=== PATIENT | female | born 1970 | race American Indian/Alaskan Native ===

== ENCOUNTER 2018-02-13 19:57 | Emergency (ER) | payer SELFPAY ==
[2018-02-13 20:06] VITALS: BP 140/81
[2018-02-13] MEDS ORDERED: BOOSTRIX IM ONE (23:52)
--- NOTE | 2018-02-13 23:52 | Emergency Department Report ---
Upper Extremity - HPI Chief Complaint: Extremity Injury, Upper Stated Complaint: RIGHT FINGER/HAND PAIN Time Seen by Provider: 02/13/18 23:51 Upper Extremity: Right Middle Finger (distal right middle finger) Occurred When: >5 Days (7 days ago) Symptoms: Yes Pain with Movement, Yes Swelling, No Deformity, No Limited Range of Movement, No Numbness, No Weakness, No Bruising/Ecchymosis, No Laceration or Abrasion Other History: 47-year-old female past medical history none presents with complaint of puncture wound to tip of right distal middle finger. Patient states she was shopping approximately one week ago in [place]. States she grabbed a bag of produce and the metal staple on bag briefly pierced the tip of her right distal middle finger. Patient states that over the course of the week she has had some mild swelling of right middle finger. Denies any difficulty moving finger. Is concerned she needs a tetanus vaccine update. Denies any erythema or pus drainage or significant swelling at site of puncture wound. Patient was very small and patient does not have foreign body sensation in tip of finger. Patient states she saw the piece of metal that it was intact. Denies any other injuries. ED Review of Systems ROS: Stated complaint: RIGHT FINGER/HAND PAIN Other details as noted in HPI Constitutional: denies: chills, fever Eyes: denies: eye pain, eye discharge, vision change ENT: denies: ear pain, throat pain Respiratory: denies: cough, shortness of breath, wheezing Cardiovascular: denies: chest pain, palpitations Endocrine: no symptoms reported Gastrointestinal: denies: abdominal pain, nausea, diarrhea Genitourinary: denies: urgency, dysuria, discharge Musculoskeletal: as per HPI (some small amount of swelling and discomfort right distal middle finger at PIP joint region). denies: back pain, joint swelling, arthralgia Skin: denies: rash, lesions Neurological: denies: headache, weakness, paresthesias Psychiatric: denies: anxiety, depression Hematological/Lymphatic: denies: easy bleeding, easy bruising ED Past Medical Hx - Past Medical History Previous Medical History?: No - Surgical History Past Surgical History?: No - Social History Smoking Status: Never Smoker Substance Use Type: None - Medications Home Medications: Home Medications Medication Instructions Recorded Confirmed Last Taken Type Acetaminophen/Codeine [Tylenol #3] 1 tab PO Q6H PRN #25 tab 06/09/15 Unknown Rx Cyclobenzaprine [Flexeril 10mg] 10 mg PO TID PRN #30 tablet 05/05/15 Unknown Rx Ibuprofen [Motrin] 600 mg PO Q8H PRN #50 tablet 05/05/15 Unknown Rx Clindamycin [Clindamycin CAP] 300 mg PO Q6H #28 capsule 02/14/18 Unknown Rx Ibuprofen [Motrin] 600 mg PO Q8H PRN #20 tablet 02/14/18 Unknown Rx Upper Extremity Exam - Exam General: Vital signs noted. No distress. Alert and acting appropriately. Head and Torso: No HEENT Abnormality, No Neck Tenderness, No Chest/Lungs Abnormality, No Abdominal Tenderness, No Back Tenderness Shoulder Exam: Yes Normal Range of Motion in Shoulder, No Shoulder Tenderness, No Clavicle Tenderness, No Shoulder Deformity, No AC Joint Tenderness Arm Exam: No Arm/Humerus Tenderness, No Arm Deformity Elbow: No Elbow Tenderness, No Normal Range of Motion in Elbow, No Elbow Deformity Forearm: No Forearm Tenderness, No Forearm Deformity, No Pain with Pronation, No Pain with Supination Wrist: Yes Normal ROM in Wrist (wrist flexion and extension intact), No Wrist Tenderness, No Wrist Deformity, No Snuffbox Tenderness, No Pain with Axial Thumb Compression Hand: Yes Digit Tenderness (some mild discomfort on palpation of area between MCP and PIP joint on the palmar aspect of hand no significant erythema or swelling on clinical exam), Yes Normal ROM in Digit(s), No Hand Tenderness, No Hand Deformity, No Digit(s) Deformity, No Tendon Dysfunction (range of motion PIPs DIPs MCPs and lumbricals fully intact all digits right hand) CMS Exam: Yes Normal Distal Pulses (distal capillary refill less than one second all fingers distal radial brachial and ulnar pulses strong to palpation) , Yes Normal Capillary Refill, Yes Normal Distal Sensation (and station intact all fingers), No Broken Skin Hand L/R Front: 1 - Slight discomfort here 2 - Patient states that this was the site of the puncture wound before. There is no clinical felon or paronychia on examination ED Course Vital Signs 02/13/18 20:04 Temperature 97.6 F Pulse Rate 74 Respiratory 20 Rate Blood Pressure 140/81 O2 Sat by Pulse 98 Oximetry ED Medical Decision Making - Medical Decision Making A/P: Possible early tenosynovitis right distal middle finger 1- no clearcut signs of erythema swelling or infection of right middle finger. Puncture wound is extremely small and has healed as per patient. Range of motion right middle finger fully intact distal capillary refill less than 1 second and distal sensation is intact. There is no erythema to touch or visible erythema/induration on palpation and inspection 2-empiric course of clindamycin 3-Motrin when necessary 4- I educated patient on signs and symptoms of infectious tenosynovitis and cellulitis and advised her to return to the ED for any inability to range her right hand or fingers significant swelling or erythema., purulent painful accumulation underneath the skin, fevers or chills. I showed her pictures of what infectious tenosynovitis looks like. They're not entirely consistent with what she has now clinically. 5- tetanus vaccine updated today Critical care attestation.: If time is entered above; I have spent that time in minutes in the direct care of this critically ill patient, excluding procedure time. ED Disposition Clinical Impression: Finger pain, right Puncture wound of finger of right hand Qualifiers: Encounter type: initial encounter Qualified Code(s): S61.239A - Puncture wound without foreign body of unspecified finger without damage to nail, initial encounter Disposition: - TO HOME OR SELFCARE Is pt being admited?: No Does the pt Need Aspirin: No Condition: Stable Instructions: Tenosynovitis (ED), RICE Therapy (ED), Diphtheria/Tetanus Vaccine (Injection) Prescriptions: Clindamycin [Clindamycin CAP] 300 mg PO Q6H #28 capsule Ibuprofen [Motrin] 600 mg PO Q8H PRN #20 tablet PRN Reason: Pain Referrals: [facility] [Provider Group] - 3-5 Days [facility] [Provider Group] - 3-5 Days Forms: Work/School Release Form(ED) Time of Disposition: 00:19
== END 2018-02-14 00:40 | disposition home or self-care (01) ==
LOC: ED 19:57
DX: S61.232A Puncture wound without foreign body of right middle finger without damage to nail, initial encounter (principal); Z88.1 Allergy status to other antibiotic agents; W22.8XXA Striking against or struck by other objects, initial encounter; Y93.89 Activity, other specified; Y92.89 Other specified places as the place of occurrence of the external cause; Y99.8 Other external cause status
CPT/HCPCS: 90471; 90715; 99282

== ENCOUNTER 2018-04-10 22:53 | Emergency (ER) | payer OTHER ==
[2018-04-11 00:08] VITALS: BP 115/82
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
[2018-04-11] MEDS ORDERED: MOTRIN PO ONE (04:37)
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
== END 2018-04-11 06:25 | disposition home or self-care (01) ==
LOC: ED 22:53
DX: S39.012A Strain of muscle, fascia and tendon of lower back, initial encounter (principal); V89.2XXA Person injured in unspecified motor-vehicle accident, traffic, initial encounter; M25.561 Pain in right knee; M54.5 Low back pain; Z88.1 Allergy status to other antibiotic agents; Y93.89 Activity, other specified; Y92.89 Other specified places as the place of occurrence of the external cause; Y99.8 Other external cause status
CPT/HCPCS: 99283